=== PATIENT | female | born 1965 | race African-American/Black ===

== ENCOUNTER 2022-09-27 09:40 | Day surgery (SDC) | payer OTHER ==
[2022-09-24 08:44] VITALS: BMI 24.2
[2022-09-27 14:03] VITALS: TEMP 97
[2022-09-27 14:14] VITALS: BP 120/74; PULSE 55; RESP 17
== END 2022-09-27 12:45 | disposition home or self-care (01) ==
LOC: FASU-ENDO 09:40
PROVIDERS: ATTEND Internal Medicine Gastroenterology
PROC: 0DJD8ZZ Inspection of Lower Intestinal Tract, Via Natural or Artificial Opening Endoscopic (ICD-10-PCS; principal; 2022-09-27 11:42)
DX: Z12.11 Encounter for screening for malignant neoplasm of colon (principal)